=== PATIENT | female | born 1945 | race Caucasian/White ===

== ENCOUNTER → 2016-06-26 | Outpatient (CLI) | payer MEDICARE, OTHER ==
--- NOTE | 2016-06-27 12:05 | RADRPT ---
PROCEDURE: Left knee radiographs. CLINICAL INDICATION: Left knee pain. TECHNIQUE: Four views. Weight bearing. Frontal, lateral, oblique, and patellar view. COMPARISON: No prior studies are available for comparison. FINDINGS: There is no fracture or dislocation. The soft tissues are normal. There are degenerative changes with osteophytes arising from all 3 joint compartment margins. There is medial and lateral joint compartment narrowing. There is no lytic or blastic lesion. There is no radiopaque foreign body. IMPRESSION: 1. Moderate degenerative changes. 2. Otherwise unremarkable images of the left knee. RPTAT: QQ .Jonah Akers MD, MD Date Time Electronically viewed and signed by .Jonah Akers MD, on 06/27/2016 12:05 .R/
== END | disposition home or self-care (01) ==
LOC: HKI 13:52
PROVIDERS: ATTEND Orthopaedic Surgery
DX: M25.562 Pain in left knee (principal); M17.12 Unilateral primary osteoarthritis, left knee
CPT/HCPCS: 20610; 73564; G0463; J1030

== ENCOUNTER → 2016-12-05 | Outpatient (CLI) | payer MEDICARE, OTHER ==
--- NOTE | 2016-12-05 16:49 | HP ---
Date/Time of Note Date/Time of Note DATE: 12/05/16 TIME: 16:29 Assessment/Plan VTE Prophylaxis VTE Prophylaxis Intervention: ambulation Assessment/Plan Chief Complaint/Hosp Course Ms. Gamble is a 71-year-old female who presents to my clinic with a left knee effusion. This is likely reactive effusion to her underlying osteoarthritis. Given that she is asymptomatic currently I am not recommending any further treatment. She can continue to ice her knee as necessary and use a light compressive wrap to help with the swelling. She should limit her activities to low impact which she is currently doing by swimming. I discussed with her that if the swelling worsens and begins to limit her range of motion or becomes painful that she should return to the office for further evaluation and treatment. Otherwise she should follow-up on an as-needed basis. Problems: HPI/ROS Admit Date/Time Admit Date/Time 12/05/2016 Hx of Present Illness This Catherine Gamble is a 71-year-old female who presents to clinic today for left knee swelling. She was a previous patient of Dr. Figueroa. She was last seen by him in June 2016 for left knee pain. At that time she was found to have mild osteoarthritis of the left knee as well as degenerative tears of the medial lateral meniscus. She was given a steroid injection at that time. Her symptoms completely resolved and she was tolerating activities. Several days ago she noticed that her left knee was swollen. She had no pain or any other symptoms. She denies any new injury. She denies fevers and chills or any redness around her knee. She is coming in today for reassurance that there is nothing emergent that needs to be done. She denies numbness and tingling in her left lower extremity ROS Denies fevers, chills, chest pain, shortness of breath, nausea, vomiting, diarrhea, and constipation. Constitutional: no complaints PMH/Family/Social Past Medical History Hyperlipidemia Tremor Obesity Past Surgical History Gastric bypass 2000 Family History Significant Family History: no pertinent family hx Social History Alcohol Use: none Smoking Status: Never smoker Drug Use: none Exam/Review of Systems Vital Signs Vitals Temperature 97.9 Pulse 67 Blood pressure 112/63 Respiratory 12 Height 5 feet 8 inches Weight 210 Exam Exam General: Patient is alert and oriented 3. No acute distress. Heart: Regular rate and rhythm Pulmonary: No pulmonary distress, no accessory muscle use, normal rate Musculoskeletal: Left lower extremity: Skin intact over the entire left lower extremity. There is no erythema or warmth over the left knee. There is a 2+ effusion of the left knee. The knee is nontender to palpation. Range of motion 0-130. There is crepitus under the patella with range of motion. The knee is stable to varus and valgus stress in 0 and 30 of flexion. However, there is pseudolaxity with valgus stress from her varus deformity. Ann Marie's and posterior drawer sign are negative. The patient stands with slight varus deformity. She has 5 out of 5 muscle strength to all major muscle groups in the left lower extremity. Her sensation is intact to light touch to superficial and deep peroneal nerve, sural, saphenous, and plantar nerves. She is able to plantarflex and dorsiflex her ankle as well as flex and extend her toes. There is 2+ dorsalis pedis pulse. No edema Medications Medications Omeprazole Simvastatin Primidone KOLE HERRON MD Dec 05, 2016 16:44
== END | disposition home or self-care (01) ==
LOC: HKI 15:31
PROVIDERS: ATTEND Orthopaedic Surgery Adult Reconstructive Orthopaedic Surgery
DX: R22.42 Localized swelling, mass and lump, left lower limb (principal); E78.5 Hyperlipidemia, unspecified; E66.9 Obesity, unspecified; Z98.84 Bariatric surgery status
CPT/HCPCS: G0463